=== PATIENT | male | born 1985 | race Caucasian/White ===

== ENCOUNTER 2023-11-10 00:38 | Emergency (ER) | payer OTHER ==
[~2023-11-10] VITALS: Ht 175.3 cm; Wt 95.3 kg
[2023-11-10 01:16] VITALS: BP 109/67; PULSE 89; RESP 18; TEMP 98; O2SAT 98
[2023-11-10] MEDS ORDERED: IBUP-2218 PO (04:02)
[2023-11-10] MEDS ORDERED: CYCL-711 PO (04:02)
[2023-11-10 04:18] VITALS: BP 109/67; PULSE 89; RESP 18; TEMP 98; O2SAT 98
== END 2023-11-10 04:18 | disposition home or self-care (01) ==
LOC: MED 00:38
DX: G57.02 Lesion of sciatic nerve, left lower limb (principal); Z79.899 Other long term (current) drug therapy
CPT/HCPCS: 99283